=== PATIENT | female | born 1965 | race Caucasian/White ===

== ENCOUNTER → 2020-02-28 11:50 | Outpatient (CLI) | payer OTHER, SELFPAY ==
--- NOTE | ~2020-02-28 | CT_ITS ---
EXAMINATION: CT abdomen pelvis wo con DATE: 02/28/2020 12:09 INDICATION: Right flank pain TECHNIQUE: Computed tomography (CT) of the abdomen and pelvis was performed without intravenous contr ast. The dose-length product (DLP) was 454.13 mGy-cm. Automated exposure control and iterative recons truction technique were employed. COMPARISON: 08/22/2013 FINDINGS: The lung bases are clear. The heart size is normal. The liver, spleen, pancreas, gallbladde r, and adrenal glands are normal. There is a 6 mm stone in the proximal right ureter which causes mil d right hydroureteronephrosis. There are multiple bilateral nonobstructing stones in both kidneys. No pathologically enlarged abdominal or pelvic lymph nodes are identified. There is no free intraperito prince gas or evidence of bowel obstruction. The appendix is normal. 1. Mild lumbar IMPRESSION: 1. 6 mm stone in the proximal right ureter causing mild right hydroureteronephrosis. 2. Bilateral nonobstructing nephrolithiasis. Reviewed, dictated and finalized at location A. IMPRESSION: 1. 6 mm stone in the proximal right ureter causing mild right hydroureteronephr osis. 2. Bilateral nonobstructing nephrolithiasis.
== END ==
PROVIDERS: PCP Family Medicine; Visit Provider Physician Assistant
DX: R10.9 Unspecified abdominal pain (principal); N20.1 Calculus of ureter; N20.0 Calculus of kidney; N13.4 Hydroureter
CPT/HCPCS: 74176

== ENCOUNTER 2020-02-29 11:09 | Outpatient (CLI) | payer OTHER, SELFPAY ==
--- NOTE | ~2020-02-29 | XR_ITS ---
XR abdomen/kub 1V 02/29/2020 11:21 Indication: Right UPJ stone Procedure: KUB Comparison: CT dated 02/28/2020 Findings: There are multiple bilateral renal stones. There is a 7 mm stone at the expected location o f the UPJ at the lower aspect of the L3 level. Bowel pattern is nonobstructive. Lung bases unremarkab le. No acute osseous abnormality. Impression: 1: Probable 7 mm right J stent. 2: Bilateral nephrolithiasis. Reviewed, dictated and finalized at location B. Impression: 1: Probable 7 mm right J stent. 2: Bilateral nephrolithiasis.
== END 2020-02-29 11:10 | disposition home or self-care (01) ==
LOC: ANHIMG 11:13
PROVIDERS: PCP Family Medicine; Visit Provider Nurse Practitioner Adult Health
DX: N13.5 Crossing vessel and stricture of ureter without hydronephrosis (principal); N20.0 Calculus of kidney
CPT/HCPCS: 74018

== ENCOUNTER 2020-03-01 13:07 | Outpatient (CLI) | payer OTHER, SELFPAY ==
--- NOTE | 2020-03-01 13:09 | ECG_ITS ---
Measurements Intervals [place] Rate: 62 P: 48 HI: 162 QRS: 71 QRSD: 85 T: 9 QT: 366 QTc: 372 Interpretive Statements SINUS RHYTHM DELAYED PRECORDIAL R/S TRANSITION LOW QRS VOLTAGE IN PRECORDIAL LEADS BORDERLINE ECG Electronically Signed On 03-01-2020 13:43:49 CDT by Erich Huertas D.O.
[2020-03-01 13:59] LABS: Partial Thromboplastin Time 24.1 SECONDS (22.3-36.8); Prothrombin Time 13.2 Seconds (11.1-14.7)
== END 2020-03-01 13:08 | disposition home or self-care (01) ==
PROVIDERS: PCP Family Medicine; Visit Provider Urology
DX: I10 Essential (primary) hypertension (principal); N20.0 Calculus of kidney; R94.31 Abnormal electrocardiogram [ECG] [EKG]
CPT/HCPCS: 36415; 85610; 85730; 93005

== ENCOUNTER 2020-03-02 00:33 | Outpatient (CLI) | payer OTHER, SELFPAY ==
[2020-03-02 19:12] LABS: SARS-CoV-2 RNA PCR Negative
== END 2020-03-02 00:34 | disposition home or self-care (01) ==
LOC: ANHCOVIDDT 00:33
PROVIDERS: PCP Family Medicine; Visit Provider Urology
DX: Z01.812 Encounter for preprocedural laboratory examination (principal); Z11.59 Encounter for screening for other viral diseases
CPT/HCPCS: 87635; C9803; U0003

== ENCOUNTER 2020-03-03 03:15 | Day surgery (SDC) | payer OTHER, SELFPAY ==
[2020-03-01 11:53] VITALS: BMI 30.5
[2020-03-03] VITALS (8 sets, daily range): BP systolic 128–174; BP diastolic 68–94; PULSE 67–86; RESP 10–17; TEMP 36.3–36.4; O2SAT 100
--- NOTE | ~2020-03-03 | XR_ITS ---
XR abdomen/kub 1V 03/03/2020 08:21 Indication: Lithotripsy Procedure: KUB Comparison: CT dated 02/28/2020 and KUB dated 02/29/2020 Findings: There are multiple bilateral renal stones, largest in the left kidney measuring approximate ly 6.5 mm. There is a proximal right ureteral stone at the L4 level overlying the transverse process, measuring approximately 6.5 mm. There are pelvic phleboliths. Bowel gas pattern is nonobstructive. M oderate colonic fecal loading. Impression: 1: Proximal right ureteral stone at the L4 level measuring approximately 6.5 mm. 2: Bilateral nephrolithiasis. Reviewed, dictated and finalized at location B. Impression: 1: Proximal right ureteral stone at the L4 level measuring approximately 6.5 mm . 2: Bilateral nephrolithiasis.
[2020-03-03] MEDS: LACTATED RINGERS 1,000 ML 30 ML IV CONT ×2 (09:20→10:39)
--- NOTE | 2020-03-03 09:23 | WPDANESEPPF ---
Anes - Initial Pre Proc Eval Procedure: Operation Date: 03/03/20 10:30 Proposed Procedures p Right Extracorporeal Shock Wave Lithotripsy - Evgeny Shah MD Date/Time: 03/03/20 09:23 Surgeon: Evgeny Shah MD Pre Op Diagnosis: Right UPJ Obstruction Patient Data Age: 55 Gender: F Height: 5 ft 2 in Weight: 74.5 kg Last Vital Signs Temp 36.3 C L 03/03/20 08:29 Pulse 67 03/03/20 08:29 Resp 16 03/03/20 08:29 BP 131/77 03/03/20 08:29 Pulse Ox 100 03/03/20 08:29 Allergies Allergy/AdvReac Type Severity Reaction Status Date / Time No Known Allergies Allergy Verified 03/01/20 11:54 Home Medications Medication Instructions Recorded Confirmed Type atorvastatin 10 mg tablet 10 mg PO DAILY #90 tablet 09/14/19 03/01/20 Rx hydroxyzine HCl 25 mg tablet 25 mg PO ONCE PRN tablet 09/14/19 03/01/20 History paroxetine HCl 10 mg tablet 10 mg PO DAILY 09/14/19 03/01/20 History tamsulosin 0.4 mg capsule 0.4 mg PO DAILY #7 cap 02/24/20 03/01/20 Rx ergocalciferol (vitamin D2) 50,000 unit PO WEEKLY 03/01/20 03/01/20 History [Vitamin D2] estradiol-norethindrone acet 1 tablet PO DAILY 03/01/20 03/01/20 History [Mimvey] hydrocodone-acetaminophen 1 tablet PO DAILY 03/01/20 03/01/20 History lisinopril 10 mg tablet 10 mg PO BID #180 tablet 03/01/20 Rx Patient hx anesthesia problems: none Family hx anesthesia problems: none PMFSH Past Medical History Medical History Anxiety Hepatitis C antibody test negative Hyperlipidemia Hypertension Social History Social History Smoking status: Never smoker Alcohol intake: current Drinks per week: 2 Spiritual care concerns: No Anes - Eval Final PreProcedure Day of Procedure 03/03/20 09:23 Patient weight: obese Heart: regular rate and rhythm Lungs: clear to auscultation Airway: Mallampati scale class 1 Neurological: alert and oriented Last oral intake: >/= 8 hours ASA classification: III Emergent: no Anesthetic plan: proceed Anesthesia type and monitoring: general LMA and standard monitoring Informed Consent: The patient's anesthetic plan and its attendant risks and benefits were discussed with the patient/family/POA. Questions were solicited and answers provided to the satisfaction of the patient/family/POA.
--- NOTE | 2020-03-03 09:51 | WPDHPUPDATE1 ---
History and Physical Update Update Date/Time: 03/03/20 09:51 History and Physical has been reviewed, including an updated exam of the patient. There are NO changes in the patient's condition. Risks, benefits, and alternatives have been discussed and questions answered. Patient agrees to proceed with procedure.
[2020-03-03] MEDS: ceFAZolin 2 GM/D5W 50 ML 2 GM/50 ML BAG IVPB (10:03)
[2020-03-03] MEDS: KETOROLAC 30 MG/ML VIAL (*BKC) IV PUSH (10:31)
--- NOTE | 2020-03-03 10:38 | PM.PROC ---
Procedure Note - Detailed Date of procedure: 03/03/20 Pre-op diagnosis: Right UPJ Obstruction Right ureteral calculus 7-8 mm Post-op diagnosis: same Procedure performed: ESWL of right ureteral calculus Description of procedure: Patient was taken to the operative suite and correctly identified. Once anesthesia was obtained the stone was localized in both planes. After 1700 shocks the stone was no longer visible. At this point time the procedure was terminated. She was seen recovery stable condition and given the standard post litho instructions. She will follow up in 10-14 days with KUB. If she develops any problems she will call us so we can deal with appropriately. Anesthesia: GLMA Surgeon: Evgeny Shah MD Drains: No Packing: No Pathology: none sent Complications: No immediate complications Condition: stable Disposition: PACU
== END 2020-03-03 12:20 | disposition home or self-care (01) ==
PROVIDERS: PCP Family Medicine; Visit Provider Urology
PROC: (CPT 50590; principal; 2020-03-03 10:30)
DX: N20.1 Calculus of ureter (principal); I10 Essential (primary) hypertension; E78.5 Hyperlipidemia, unspecified; F41.9 Anxiety disorder, unspecified; E66.9 Obesity, unspecified; Z68.30 Body mass index [BMI] 30.0-30.9, adult
CPT/HCPCS: 50590; 74018; 87635; C9803; J0690; J1100; J1885; J2250; J2370; J2405; J2704; J3010; J7120; U0003

== ENCOUNTER 2020-03-16 08:27 | Outpatient (CLI) | payer OTHER, SELFPAY ==
--- NOTE | ~2020-03-16 | XR_ITS ---
EXAMINATION: XR abdomen/kub 1V INDICATION: Ureteropelvic junction obstruction TECHNIQUE: Supine views of the abdomen were obtained on 2 radiographs. COMPARISON: 03/03/2020 FINDINGS: There are multiple stones of the kidneys. The largest on the right measures up to 6 mm. The largest on the left measures 7 mm. The previously described proximal right ureteral stone is not def initely identified. Pelvic phleboliths have an appearance similar to the comparison examination. The bowel gas pattern is normal. Visualized lung bases are clear. IMPRESSION: 1. Previously described right ureteral stone not definitely identified. 2. Bilateral nephrolithiasis. Reviewed, dictated and finalized at location B.
== END 2020-03-16 08:28 | disposition home or self-care (01) ==
LOC: ANHIMG 08:32
PROVIDERS: PCP Family Medicine; Visit Provider Nurse Practitioner Adult Health
DX: N13.5 Crossing vessel and stricture of ureter without hydronephrosis (principal); N20.0 Calculus of kidney
CPT/HCPCS: 74018

== ENCOUNTER 2020-05-13 09:15 | Outpatient (CLI) | payer OTHER, SELFPAY ==
[2020-05-13 09:59] LABS: Prothrombin Time 13.1 Seconds (11.1-14.7)
[2020-05-13 10:00] LABS: Partial Thromboplastin Time 23.8 SECONDS (22.3-36.8)
== END 2020-05-13 09:16 | disposition home or self-care (01) ==
PROVIDERS: PCP Family Medicine; Visit Provider Urology
DX: N20.0 Calculus of kidney (principal); Z01.812 Encounter for preprocedural laboratory examination
CPT/HCPCS: 36415; 85610; 85730; 87086

== ENCOUNTER 2020-05-17 02:46 | Outpatient (CLI) | payer OTHER, SELFPAY ==
[2020-05-17 18:24] LABS: SARS-CoV-2 RNA PCR Negative
== END 2020-05-17 02:47 | disposition home or self-care (01) ==
LOC: ANHCOVIDDT 02:46
PROVIDERS: PCP Family Medicine; Visit Provider Urology
DX: Z01.812 Encounter for preprocedural laboratory examination (principal); Z20.828 Contact with and (suspected) exposure to other viral communicable diseases
CPT/HCPCS: 87635; C9803; U0003

== ENCOUNTER 2020-05-19 00:23 | Day surgery (SDC) | payer OTHER, SELFPAY ==
[2020-05-11 09:06] VITALS: BMI 30.5
--- NOTE | ~2020-05-19 | XR_ITS ---
EXAMINATION: XR abdomen/kub 1V EXAM DATE: 05/19/2020 07:30 INDICATION: Lithotripsy attention left kidney. TECHNIQUE: Frontal projection of the upper abdomen, frontal projection lower abdomen/pelvis for inter pretation. Comparison is made to prior examination from 03/16/2020. FINDINGS: There is large amount of bowel gas overlying the renal contours. There are multiple cluste rs of left calyceal stones identified through the bowel gas. There are clusters of smaller right-side d calyceal stones also identified. There is no organomegaly. There are no osseous abnormalities ident ified. IMPRESSION: Bilateral nephrolithiasis, larger stone burden on the left. Reviewed, dictated and finalized at location A.
--- NOTE | 2020-05-19 07:25 | WPDHPUPDATE1 ---
History and Physical Update Update Date/Time: 05/19/20 07:25 History and Physical has been reviewed, including an updated exam of the patient. There are NO changes in the patient's condition. Risks, benefits, and alternatives have been discussed and questions answered. Patient agrees to proceed with procedure. Proceed with left renal eswl
[2020-05-19 08:01] VITALS: BP 148/81; PULSE 68; RESP 16; TEMP 36.9; O2SAT 99
[2020-05-19] MEDS: LACTATED RINGERS 1,000 ML 30 ML IV CONT (08:01)
--- NOTE | 2020-05-19 08:55 | P.PNAN_ITS ---
Anes - Initial Pre Proc Eval Procedure: Operation Date: 05/19/20 09:30 Proposed Procedures p Left Renal Extracorporeal Shock Wave Lithotripsy - Evgeny Shah MD Date/Time: 05/19/20 08:55 Surgeon: Evgeny Shah MD Pre Op Diagnosis: Left Renal Stone Patient Data Age: 55 Gender: F Height: 5 ft 2 in Weight: 75.8 kg Last Vital Signs Temp 36.9 C 05/19/20 08:01 Pulse 68 05/19/20 08:01 Resp 16 05/19/20 08:01 BP 148/81 H 05/19/20 08:01 Pulse Ox 99 05/19/20 08:01 Allergies Allergy/AdvReac Type Severity Reaction Status Date / Time No Known Allergies Allergy Verified 05/19/20 07:35 Home Medications Medication Instructions Recorded Confirmed Type hydroxyzine HCl 25 mg tablet 25 mg PO DAILY PRN tablet 09/14/19 05/11/20 History paroxetine HCl 10 mg tablet 10 mg PO DAILY 09/14/19 05/19/20 History ergocalciferol (vitamin D2) 50,000 unit PO WEEKLY 03/01/20 05/19/20 History [Vitamin D2] estradiol-norethindrone acet 1 tablet PO DAILY 03/01/20 05/19/20 History [Mimvey] lisinopril 20 mg tablet 20 mg PO DAILY #90 tablet 04/07/20 05/19/20 Rx atorvastatin 10 mg PO DAILY 05/11/20 05/19/20 History Patient hx anesthesia problems: none Family hx anesthesia problems: none PMFSH Past Medical History Medical History Anxiety Hepatitis C antibody test negative Hyperlipidemia Hypertension Family History Family History Grandparent Diabetes mellitus Father Hypertension Mother Hypertension Family history of elevated blood lipids Social History Social History Smoking status: Never smoker Alcohol intake: current Drinks per week: 2 Spiritual care concerns: No Anes - Eval Final PreProcedure Day of Procedure 05/19/20 08:55 Patient weight: obese Heart: regular rate and rhythm Lungs: clear to auscultation Airway: Mallampati scale class 1 Neurological: alert and oriented Last oral intake: >/= 8 hours ASA classification: III Emergent: no Anesthetic plan: proceed Anesthesia type and monitoring: general LMA Informed Consent: The patient's anesthetic plan and its attendant risks and b enefits were discussed with the patient/family/POA. Questions were solicited and answers provided to the satisfaction of the patient/family/POA.
[2020-05-19] MEDS: ceFAZolin 2 GM/D5W 50 ML 2 GM/50 ML BAG IVPB (09:09)
--- NOTE | 2020-05-19 09:46 | PM.PROC ---
Procedure Note - Detailed Date of procedure: 05/19/20 Pre-op diagnosis: Left Renal Stone Post-op diagnosis: same Procedure performed: ESWL left renal calculi Description of procedure: Patient is taken to the operative suite and correctly identified. Once anesthesia was obtained she was placed in the supine position. She has multiple left renal stones. We started with the upper pole stones. Two thousand five hundred shocks were given over the course of 3-4 different stones. There appeared to be fragmentation. She was taken recovery room in stable condition. She will follow up 7-10 days with a KUB. Anesthesia: GLMA Surgeon: Evgeny Shah MD Drains: No Packing: No Pathology: none sent Complications: No immediate complications Condition: stable Disposition: PACU
[2020-05-19 09:55] VITALS: BP 127/81; PULSE 89; RESP 14; TEMP 36.1; O2SAT 100
[2020-05-19 10:10] VITALS: BP 141/86; PULSE 80; RESP 16; O2SAT 100
[2020-05-19 10:25] VITALS: BP 136/83; PULSE 74; RESP 14; O2SAT 100
[2020-05-19 10:27] VITALS: BP 143/90; PULSE 78; RESP 14
[2020-05-19 10:57] VITALS: BP 140/86; PULSE 76; RESP 14
== END 2020-05-19 11:15 | disposition home or self-care (01) ==
PROVIDERS: PCP Family Medicine; Visit Provider Urology
PROC: (CPT 50590; principal; 2020-05-19 09:30)
DX: N20.0 Calculus of kidney (principal); I10 Essential (primary) hypertension; E78.5 Hyperlipidemia, unspecified; F41.9 Anxiety disorder, unspecified; E66.9 Obesity, unspecified; Z68.30 Body mass index [BMI] 30.0-30.9, adult
CPT/HCPCS: 50590; 74018; J0690; J1100; J2250; J2405; J3010; J7120

== ENCOUNTER 2020-05-31 09:50 | Outpatient (CLI) | payer OTHER, SELFPAY ==
--- NOTE | ~2020-05-31 | XR_ITS ---
EXAMINATION: XR abdomen/kub 1V DATE: 05/31/2020 10:08 INDICATION: Obstructing right ureteropelvic junction stone. TECHNIQUE: A supine view of the abdomen on 2 radiographs was obtained. COMPARISON: 05/19/2020 FINDINGS: There are numerous small stones scattered throughout the upper, mid and lower, left and right kidneys , the largest on both sides measuring up to 4 mm. Unchanged pattern of phleboliths in the pelvis. No definitive stones seen along the course of the ureters. Normal bowel gas pattern. IMPRESSION: 1. Multiple bilateral renal stones. Reviewed, dictated and finalized at location B.
== END 2020-05-31 09:51 | disposition home or self-care (01) ==
LOC: ANHIMG 09:55
PROVIDERS: PCP Family Medicine; Visit Provider Nurse Practitioner Adult Health
DX: N13.5 Crossing vessel and stricture of ureter without hydronephrosis (principal); N20.0 Calculus of kidney
CPT/HCPCS: 74018

== ENCOUNTER 2020-06-09 13:29 | Outpatient (CLI) | payer OTHER, SELFPAY ==
[2020-06-09 14:09] LABS: Prothrombin Time 13.2 Seconds (11.1-14.7)
[2020-06-09 14:10] LABS: Partial Thromboplastin Time 24.1 SECONDS (22.3-36.8)
== END 2020-06-09 13:30 | disposition home or self-care (01) ==
PROVIDERS: PCP Family Medicine; Visit Provider Urology
DX: N20.0 Calculus of kidney (principal)
CPT/HCPCS: 36415; 85610; 85730; 87086

== ENCOUNTER 2020-06-14 01:34 | Outpatient (CLI) | payer OTHER, SELFPAY ==
[2020-06-14 18:17] LABS: SARS-CoV-2 RNA PCR Negative
== END 2020-06-14 01:35 | disposition home or self-care (01) ==
LOC: ANHCOVIDDT 01:35
PROVIDERS: PCP Family Medicine; Visit Provider Urology
DX: Z01.812 Encounter for preprocedural laboratory examination (principal); Z20.828 Contact with and (suspected) exposure to other viral communicable diseases
CPT/HCPCS: 87635; C9803; U0003

== ENCOUNTER 2020-06-16 01:35 | Day surgery (SDC) | payer OTHER, SELFPAY ==
[2020-06-06 10:29] VITALS: BMI 30.5
[2020-06-16] VITALS (8 sets, daily range): BP systolic 93–139; BP diastolic 69–86; PULSE 60–76; RESP 14–18; TEMP 36.1–36.6; O2SAT 96–100
--- NOTE | ~2020-06-16 | XR_ITS ---
EXAMINATION: XR abdomen/kub 1V DATE: 06/16/2020 07:35 INDICATION: Kidney stones. TECHNIQUE: A supine view of the abdomen on 2 radiographs was obtained. COMPARISON: CT abdomen and pelvis 02/28/2020 FINDINGS: There are multiple stones in right kidney measuring up to 5 mm. There are multiple stones i n left kidney measuring up to 6 mm. There are phleboliths in the pelvis. There are no dilated loops o f bowel. IMPRESSION: 1. Bilateral kidney stones. Reviewed, dictated and finalized at location A. IMPRESSION: 1. Bilateral kidney stones.
--- NOTE | 2020-06-16 07:33 | WPDHPUPDATE1 ---
History and Physical Update Update Date/Time: 06/16/20 07:33 History and Physical has been reviewed, including an updated exam of the patient. There are NO changes in the patient's condition. Risks, benefits, and alternatives have been discussed and questions answered. Patient agrees to proceed with procedure. Right renal eswl
--- NOTE | 2020-06-16 08:15 | WPDHPUPDATE1 ---
History and Physical Update Update Date/Time: 06/16/20 08:15 History and Physical has been reviewed, including an updated exam of the patient. There are NO changes in the patient's condition. Risks, benefits, and alternatives have been discussed and questions answered. Patient agrees to proceed with procedure. Proceed with right renal eswl. All systems reviewed and within normal range'
[2020-06-16] MEDS: LACTATED RINGERS 1,000 ML 30 ML IV CONT (08:20)
--- NOTE | 2020-06-16 08:32 | P.PNAN_ITS ---
Anes - Initial Pre Proc Eval Procedure: Operation Date: 06/16/20 09:30 Proposed Procedures p Right Renal Extracorporeal Shock Wave Lithotripsy - Evgeny Shha MD Date/Time: 06/16/20 08:32 Surgeon: Evgeny Shah MD Pre Op Diagnosis: Right Renal Stone Patient Data Age: 55 Gender: F Height: 1.57 m Weight: 75 kg Last Vital Signs Temp 36.6 C 06/16/20 07:47 Pulse 76 06/16/20 07:47 Resp 16 06/16/20 07:47 BP 120/80 06/16/20 07:47 Pulse Ox 100 06/16/20 07:47 Allergies Allergy/AdvReac Type Severity Reaction Status Date / Time No Known Allergies Allergy Verified 06/16/20 08:08 Home Medications Medication Instructions Recorded Confirmed Type hydroxyzine HCl 25 mg tablet 25 mg PO DAILY PRN tablet 09/14/19 06/06/20 History paroxetine HCl 10 mg tablet 10 mg PO DAILY 09/14/19 06/16/20 History ergocalciferol (vitamin D2) 50,000 unit PO WEEKLY 03/01/20 06/16/20 History [Vitamin D2] estradiol-norethindrone acet 1 tablet PO DAILY 03/01/20 06/16/20 History [Mimvey] lisinopril 20 mg tablet 20 mg PO DAILY #90 tablet 04/07/20 06/16/20 Rx atorvastatin 10 mg PO DAILY 05/11/20 06/16/20 History Patient hx anesthesia problems: none Family hx anesthesia problems: none [facility] Past Medical History Medical History Anxiety Hepatitis C antibody test negative Hyperlipidemia Hypertension Family History Family History Grandparent Diabetes mellitus Father Hypertension Mother Hypertension Family history of elevated blood lipids Social History Social History Smoking status: Never smoker Alcohol intake: current Drinks per week: 2 Spiritual care concerns: No Anes - Eval Final PreProcedure Day of Procedure 06/16/20 08:32 Patient weight: obese Heart: regular rate and rhythm Lungs: clear to auscultation and normal air movement Airway: Mallampati scale class 1 Neurological: alert and oriented Last oral intake: >/= 8 hours ASA classification: III Emergent: no Anesthetic plan: proceed Anesthesia type and monitoring: general LMA and standard monitoring Informed Consent: The patient's anesthetic plan and its attendant risks and benefits were discussed with the patient/family/POA. Questions were solicited and answers provided to the satisfaction of the patient/family/POA.
[2020-06-16] MEDS: ceFAZolin 2 GM/D5W 50 ML 2 GM/50 ML BAG IVPB (09:10)
--- NOTE | 2020-06-16 09:52 | P.OP_ITS ---
Procedure Note - Detailed Date of procedure: 06/16/20 Pre-op diagnosis: Right Renal Stone Post-op diagnosis: same Procedure performed: ESWL of right renal calculi Description of procedure: patient is taken the operative suite and correctly id entified. Once anesthesia was obtained the stones in the right kidneys were located. We focused on 2 of the larger stones. One was in the midpole him was in the upper pole. Each stone measured between 4-5 mm. A total of 2500 shocks were distributed amongst the 2 stones. Patient tolerated procedure well without any complications is taken recovery room stable condition. Anesthesia: GLMA Surgeon: Evgeny Shah MD Drains: No Packing: No Pathology: none sent Complications: No immediate complications Condition: stable Disposition: PACU
== END 2020-06-16 11:45 | disposition home or self-care (01) ==
PROVIDERS: PCP Family Medicine; Visit Provider Urology
PROC: (CPT 50590; principal; 2020-06-16 09:30)
DX: N20.0 Calculus of kidney (principal); I10 Essential (primary) hypertension; E78.5 Hyperlipidemia, unspecified; F41.9 Anxiety disorder, unspecified; E66.9 Obesity, unspecified; Z68.30 Body mass index [BMI] 30.0-30.9, adult
CPT/HCPCS: 50590; 74018; J0690; J1100; J2250; J2405; J2704; J3010; J7120

== ENCOUNTER → 2020-08-09 10:06 | Outpatient (CLI) | payer OTHER, SELFPAY ==
--- NOTE | ~2020-08-09 | DEXA_ITS ---
Bone Density Report Name: Rima Costa Age: 55 Sex: Female Ethnicity: White Date of : 1965 Indication: postmenopausal; screening for osteoporosis; Referring Provider: ALLA, ONESIMO Study: Bone densitometry was performed. Exam Date: August 09, 2020 Accession number: [id number] Bone Density: Region BMD T-score Z-score Classification AP Spine (L1-L4) 1.120 0.7 1.8 Normal Femoral Neck (Left) 0.891 0.4 1.5 Normal Total Hip (Left) 1.040 0.8 1.5 Normal Femoral Neck (Right) 0.883 0.3 1.4 Normal Total Hip (Right) 1.023 0.7 1.4 Normal Total Hip Mean 1.032 0.8 1.5 Normal World Health Organization criteria for BMD impression classify patients as: Normal (T-score at or above -1.0), Osteopenia (T-score between -1.0 and -2.5), or Osteoporosis (T-score at or below -2.5). 10-year Fracture Risk: FRAX not reported because: All T-scores for Spine Total, Hip Total, Femoral Neck at or above -1.0 Treated for osteoporosis Clinical Information Provided by Patient: Is being treated for osteoporosis Has used the following medications: HRT (i.e. estrogen/hormone therapy), Vitamin D Patient maximum height was 63.2 Menopause Age: 54 Drinks caffeinated beverages Onset of menses at age 13 Number of children 2 Impression: The patient has normal bone mass. Discussion: It is important to ask patients whether they are taking their medications and to encourage continued and appropriate compliance with their osteoporosis therapies to reduce fracture risk. It is also important to review their risk factors and encourage appropriate calcium and vitamin D intakes, exercise, fall prevention and other lifestyle measures. Follow-Up: Consider a repeat BMD and Vertebral Fracture Assessment (VFA) exam in 2 years or sooner if medically necessary, to reassess this patient's status. Reported by: AMY on 08/09/2020 10:25:00 AM. Reviewed, dictated and finalized at location [facility]
--- NOTE | ~2020-08-09 | MM_ITS ---
EXAMINATION: MM screening james BI w carolann HISTORY: Screening mammogram TECHNIQUE: Craniocaudal and mediolateral oblique 3-D tomosynthesis images were obtained and synthetic 2-D images were generated. CAD analysis was submitted and interpreted. COMPARISON: 07/24/2019, 05/30/2018, 04/19/2017 bilateral digital screening mammogram examinations BREAST PARENCHYMAL COMPOSITION: There are scattered areas of fibroglandular density. FINDINGS: There is no evidence of suspicious mass, calcification, or architectural distortion to sugg est malignancy in either breast. There has been no suspicious interval change. IMPRESSION: 1. No mammographic evidence of malignancy. 2. Recommend routine screening mammography in one year. BI-RADS Category 1: Negative Reviewed, dictated and finalized at location A. [employer] SYSTEM[employer]ER
== END ==
PROVIDERS: PCP Family Medicine; Visit Provider Nurse Practitioner
DX: Z12.31 Encounter for screening mammogram for malignant neoplasm of breast (principal); Z78.0 Asymptomatic menopausal state
CPT/HCPCS: 77063; 77067; 77080

== ENCOUNTER 2020-11-26 10:22 | Outpatient (CLI) | payer OTHER, SELFPAY ==
--- NOTE | ~2020-11-26 | XR_ITS ---
EXAMINATION: XR abdomen/kub 1V INDICATION: Calculus of the kidney TECHNIQUE: Supine view of the abdomen is obtained. COMPARISON: 06/16/2020, 05/31/2020 FINDINGS: There are multiple stones scattered throughout the left kidney. The largest measures 4 mm i n the lower pole. Bowel contents obscure visualization of the right kidney. There are multiple phlebo liths in the pelvis. No stones are identified along the expected courses of the ureters. The bowel ga s pattern is normal. IMPRESSION: 1. Left nephrolithiasis. Reviewed, dictated and finalized at location A. IMPRESSION: 1. Left nephrolithiasis.
== END 2020-11-26 10:23 | disposition home or self-care (01) ==
PROVIDERS: PCP Family Medicine; Visit Provider Internal Medicine Nephrology
DX: N20.0 Calculus of kidney (principal)
CPT/HCPCS: 74018

== ENCOUNTER 2021-11-30 09:41 | Outpatient (CLI) | payer OTHER, SELFPAY ==
--- NOTE | ~2021-11-30 | XR_ITS ---
EXAMINATION: XR abdomen/kub 1V EXAM DATE: 11/30/2021 10:00 INDICATION: Calculus of kidney. TECHNIQUE: Frontal projection of the upper abdomen, frontal projection lower abdomen/pelvis for inter pretation. Comparison is made to prior examination from 11/26/2020. FINDINGS: There is expected amount of colonic stool and gas. No small bowel dilation, nonobstructiv e bowel gas pattern. Probable identification of clusters of bilateral renal calyceal stones, larger on the left, indicated. Left side had similar appearance on prior study, possible right nephrolithias is not well visualized on that exam. Calcifications in the pelvis are believed to be phleboliths. There is no organomegaly suspected. T he bones are unremarkable. Lung bases unremarkable. IMPRESSION: Probable bilateral nephrolithiasis. Reviewed, dictated and finalized at location B.
== END 2021-11-30 09:42 | disposition home or self-care (01) ==
PROVIDERS: PCP Family Medicine; Visit Provider Internal Medicine Nephrology
DX: N20.0 Calculus of kidney (principal)
CPT/HCPCS: 74018

== ENCOUNTER → 2021-12-22 09:42 | Outpatient (CLI) | payer OTHER, SELFPAY ==
--- NOTE | ~2021-12-22 | MM_ITS ---
EXAMINATION: MM screening james BI w carolann HISTORY: Screening TECHNIQUE: Craniocaudal and mediolateral oblique 3-D tomosynthesis images were obtained and synthetic 2-D images were generated. CAD analysis was submitted and interpreted. COMPARISON: Comparison to multiple prior studies sequentially, with oldest reviewed study dated 03/08. BREAST PARENCHYMAL COMPOSITION: There are scattered areas of fibroglandular density. FINDINGS: There is no evidence of suspicious mass, calcification, or architectural distortion to sugg est malignancy in either breast. There has been no suspicious interval change. IMPRESSION: 1. No mammographic evidence of malignancy. 2. Recommend routine screening mammography in one year. BI-RADS Category 1: Negative Reviewed, dictated and finalized at location A.
== END ==
PROVIDERS: PCP Family Medicine; Visit Provider Nurse Practitioner
DX: Z12.31 Encounter for screening mammogram for malignant neoplasm of breast (principal)
CPT/HCPCS: 77063; 77067

== ENCOUNTER 2022-11-18 15:51 | Outpatient (CLI) | payer OTHER, SELFPAY ==
--- NOTE | ~2022-11-18 | XR_ITS ---
EXAMINATION: XR abdomen/kub 1V DATE: 11/18/2022 16:19 INDICATION: Kidney stone. TECHNIQUE: A supine view of the abdomen on 2 radiographs was obtained. COMPARISON: CT abdomen and pelvis 02/28/2020, abdomen radiographs 11/30/2021 FINDINGS: There are phleboliths in the pelvis. There are no dilated loops of bowel. The kidneys are o bscured by bowel. There are several stones in each kidney measuring up to at least 4 mm on the left. IMPRESSION: 1. Bilateral kidney stones. Reviewed, dictated and finalized at location A. IMPRESSION: 1. Bilateral kidney stones.
== END 2022-11-18 15:52 | disposition home or self-care (01) ==
LOC: ANHIMG 15:53
PROVIDERS: PCP Family Medicine; Visit Provider Internal Medicine Nephrology
DX: N20.0 Calculus of kidney (principal); I10 Essential (primary) hypertension
CPT/HCPCS: 74018

== ENCOUNTER → 2023-01-03 16:41 | Outpatient (CLI) | payer OTHER, SELFPAY ==
--- NOTE | ~2023-01-03 | MM_ITS ---
EXAMINATION: MM screening [facility] BI w carolann HISTORY: Screening mammogram TECHNIQUE: Craniocaudal and mediolateral oblique 3-D tomosynthesis images were obtained and synthetic 2-D images were generated. CAD analysis was submitted and interpreted. COMPARISON: 12/22/2021, 08/09/2020, 07/24/2019 BREAST PARENCHYMAL COMPOSITION: There are scattered areas of fibroglandular density. FINDINGS: No suspicious mass, calcification, or architectural distortion are identified in either alis ast to suggest malignancy. There has been no suspicious interval change. IMPRESSION: 1. No mammographic evidence of malignancy. 2. Recommend routine screening mammography in one year. BI-RADS Category 1: Negative Reviewed, dictated and finalized at location A.
== END ==
PROVIDERS: PCP Family Medicine; Visit Provider Nurse Practitioner
DX: Z12.31 Encounter for screening mammogram for malignant neoplasm of breast (principal)
CPT/HCPCS: 77063; 77067

== ENCOUNTER 2023-12-12 11:22 | Outpatient (CLI) | payer OTHER, SELFPAY ==
--- NOTE | ~2023-12-12 | XR_ITS ---
Supine and upright views of the abdomen Clinical history: Renal stone COMPARISON: 11/18/2022 Findings: Bowel gas pattern is nonspecific. No evidence for obstruction or free air. Small bilateral renal stones are probably similar to prior exam. Osseous structures are intact. Impression: Small bilateral renal stones, probably similar to prior exam. Reviewed, dictated and finalized at [facility]. Impression: Small bilateral renal stones, probably similar to prior exam.
== END 2023-12-12 11:23 | disposition home or self-care (01) ==
LOC: ANHIMG 11:24
PROVIDERS: PCP Family Medicine; Visit Provider Internal Medicine Nephrology
DX: N20.0 Calculus of kidney (principal)
CPT/HCPCS: 74018

== ENCOUNTER 2024-01-10 08:41 | Outpatient (CLI) | payer OTHER, SELFPAY ==
--- NOTE | ~2024-01-10 | MM_ITS ---
EXAMINATION: MM screening [facility] w carolann HISTORY: Screening mammogram TECHNIQUE: Craniocaudal and mediolateral oblique 3-D tomosynthesis images were obtained and synthetic 2-D images were generated. CAD analysis was submitted and interpreted. COMPARISON: 01/03/2023, 12/22/2021, 08/09/2020 BREAST PARENCHYMAL COMPOSITION:Not Dense. There are scattered areas of fibroglandular density. FINDINGS: No suspicious mass, calcification, or architectural distortion are identified in either alis ast to suggest malignancy. There has been no suspicious interval change. IMPRESSION: No mammographic evidence of malignancy. Recommend routine screening mammography in one year. BI-RADS Category 1: Negative Reviewed, dictated and finalized at location .
== END 2024-01-10 08:42 ==
LOC: MICIMG 08:42
PROVIDERS: PCP Family Medicine; Visit Provider Nurse Practitioner
DX: Z12.31 Encounter for screening mammogram for malignant neoplasm of breast (principal)
CPT/HCPCS: 77063; 77067

== ENCOUNTER 2025-01-11 08:57 | Outpatient (CLI) | payer OTHER, SELFPAY ==
--- NOTE | ~2025-01-11 | XR_ITS ---
XR abdomen/kub 1V 01/11/2025 09:10 Indication: Renal stones Procedure: KUB Comparison: 12/12/2023 Findings: Bowel gas pattern nonobstructive. There are multiple left renal stones. There is a new calc ification in the left midabdomen overlying the L5 transverse process, which may represent a phlebolit h or ureteral stone. Recommend correlation with CT. There are multiple pelvic phleboliths unchanged. Impression: 1: Multiple left renal stones. Possible left ureteral stone at the L5 level. Consider correlation wit h CT. Reviewed, dictated and finalized at location A. Impression: 1: Multiple left renal stones. Possible left ureteral stone at the L5 level. Co nsider correlation with CT.
--- OUTSIDE RECORDS SUMMARY | 2025-01-11 09:03 | XMS_ITS | Clinical Summary ---
Author Organization [facility] Address [address] [place] [address] Phone Care Team Providers Care Drawer In Hand Name Role Phone Gwen Cruz MD Primary Care Provider [phone] Allergies No known active allergies Medications atorvastatin (LIPITOR) 10 MG tablet 03/06/2020 Active ergocalciferol (VITAMIN D2) 1.25 MG (51125 UT) capsule 03/04/2020 Active estradiol-noreth indrone (ACTIVELLA) 1-0.5 MG per tablet 04/30/2020 Active PARoxetine (PAXIL) 10 MG tablet 03/20/2020 Active hydrOXYzine (ATARAX) 25 MG tablet 10/27/2020 Active losartan (COZAAR) 100 MG tablet 12/03/2021 Active POTASSIUM CITRATE PO Take 275 mg by mouth 2 bid Active Active Problems Problem Noted Date Diagnosed Date Essential hypertension 05/22/2020 Calculus of kidney 05/22/2020 Immunizations Immunization Administration Dates Next Due Influenza TIV (IM) 05/10/2022,06/01/2021, 020 Family History Medical History Relation Comments Hypertension Father Relation Status Comments Father Social History Tobacco Use Types Packs/Day Years Used Date Smoking Tobacco: Never Smokeless Tobacco: Never Alcohol Use Standard Drinks/Week Comments Yes 0 (1 standard drink = 0.6 oz pur e alcohol) occasional AUDIT-C Answer Date Recorded Q1: How often do you have a drink containing alc ohol? Never 05/22/2020 Average Number of Drinks Not on file 020 Frequency of Binge Drinking Not on file 12/2019 Comments Unknown Sex and Gender Information Value Date Recorded Sex Assigned at Not on file Legal Sex Female 9:39 AM MDT Gender Identity Not on file Sexual Orientation Not on file Last Filed Vital Signs Vital Sign Reading Time Taken Comments Blood Pressure 122/74 06/05/2022 3:45 PM CDT Pulse 72 06/05/2022 3:45 PM CDT Temperature 36.4 C (97.5 F) 06/05/2022 3:45 PM CDT Respiratory Rate - - Oxygen Saturation - - Inhaled Oxygen Concentration - - Weight 84.4 kg (186 lb) 06/05/2022 3:45 PM CDT Height 157.5 cm (5' 2) 06/05/2022 3:45 PM CDT Body Mass Index 34.02 06/05/2022 3:45 PM CDT Plan of Treatment Health Maintenance Due Date Last Done Comments Pneumococcal PPSV23 Highest Risk Adult (1 of 3 - PCV13) 02/15/1984 Influenza Vaccine (Season Ended) 2025 05/10/2022, 06/01/2021, 04/23/2020 [place] [id number] Care Teams Drawer In Hand Relationship Specialty Start Date End Date Gwen Cruz MD PCP - General Family Medicine 03/20/20
== END 2025-01-11 08:58 | disposition home or self-care (01) ==
LOC: ANHIMG 08:58
PROVIDERS: PCP Family Medicine; Visit Provider Internal Medicine Nephrology
DX: N20.0 Calculus of kidney (principal)
CPT/HCPCS: 74018

== ENCOUNTER 2025-02-21 15:18 | Outpatient (CLI) | payer OTHER, SELFPAY ==
--- NOTE | ~2025-02-21 | CT_ITS ---
Non-contrast CT scan of the Abdomen and Pelvis Clinical indication: Renal stone Technique: 2.5 mm axial scans were obtained through the abdomen and pelvis without intravenous or or al contrast. Dose reduction technique was used on this scan by utilizing automated exposure control a nd iterative reconstruction technique. The dose-length product (DLP) was 542.29 mGy-cm. Findings: Images through the lung bases reveal no abnormalities. There are multiple small bilateral nonobstructing renal stones, as well as bilateral medullary nephro calcinosis. No hydronephrosis. No ureteral stone identified. The liver, spleen, pancreas, gallbladder, and adrenals appear normal. There is no aortic aneurysm. There is no evidence of bowel obstruction. Images through the pelvis were performed. Urinary bladder unremarkable. No pelvic mass seen. Trace pe lvic free fluid noted. Impression: Bilateral nonobstructing renal stones with bilateral medullary nephrocalcinosis. Reviewed, dictated and finalized at [facility]. Impression: Bilateral nonobstructing renal stones with bilateral medullary nephrocalcinosis .
== END 2025-02-21 15:19 | disposition home or self-care (01) ==
PROVIDERS: PCP Internal Medicine Nephrology; Visit Provider Internal Medicine Nephrology
DX: N20.0 Calculus of kidney (principal)
CPT/HCPCS: 74176

== ENCOUNTER 2025-02-25 00:45 | Day surgery (SDC) | payer OTHER, SELFPAY ==
[2025-02-07 14:33] VITALS: BMI 31.1
--- OUTSIDE RECORDS SUMMARY | 2025-02-25 00:47 | XMS_ITS | Clinical Summary ---
Author Organization [facility] Address [address] [place] [id number] Phone Care Team Providers Care Putaway Driver Name Role Phone Gwen Cruz MD Primary Care Provider [phone] Allergies No known active allergies Medications atorvastatin (LIPITOR) 10 MG tablet 03/06/2020 Active ergocalciferol (VITAMIN D2) 1.25 MG (79189 UT) capsule 03/04/2020 Active estradiol-noreth indrone (ACTIVELLA) 1-0.5 MG per tablet 04/30/2020 Active PARoxetine (PAXIL) 10 MG tablet 03/20/2020 Active hydrOXYzine (ATARAX) 25 MG tablet 10/27/2020 Active losartan (COZAAR) 100 MG tablet 12/03/2021 Active POTASSIUM CITRATE PO Take 275 mg by mouth 2 bid Active Active Problems Problem Noted Date Diagnosed Date Essential hypertension 05/22/2020 Calculus of kidney 05/22/2020 Encounters Date Type Department Care Team Description 01/10/2025 Orders Only [facility] Nephrology and Hypertension [address], [address] [place] [address] Cali Alvarez MD from Last 3 Months Immunizations Immunization Administration Dates Next Due Influenza [...] of 3 - PCV13) 02/15/1984 Influenza Vaccine (#1) 2025 2, 06/01/2021, 04/23/2020 Procedures Procedure Name Priority Date/Time Associated Diagnosis Comments LITHOLINK 24-HOUR URINE, [place] Routine 01/10/2025 7:00 AM CDT from Last 3 Months Results * (ABNORMAL) Litholink 24-Hour Urine Panel (01/10/2025 7:00 AM CDT) CYSTINE, URINE, QUALITATIVE CANCELED [facility] 1 Comment: Test not performed. Previous test results on file. Result canceled by the ancillary. Volume, 24-Hour Urine 1,120 500 - 4,000 mL/24 hr [facility] 1 Calcium oxalate index, 24 hour Urine 1.22(L) 6.00 - 10.00 [facility] 1 Calcium, 24 hour Urine 59 <200 mg/24 hr [facility] 1 Oxalate, 24 hour Urine 10(L) 20 - 40 mg/24 hr [facility] 1 Citrate, 24 hour Urine 197(L) >550 mg/24 hr [facility] 1 CALCIUM PHOSPHATE SATURATION 0.63 0.50 - 2.00 [facility] 1 pH of 24 hour Urine 6.039 5.800 - 6.200 [facility] 1 Urate, 24 hour Urine 0.76 <1.00 [facility] 1 Uric Acid (Urate), 24 Hour Urine 463 <750 mg/24 hr [facility] 1 Sodium, 24 hour Urine 143 50 - 150 mmol/24 hr [facility] 1 Potassium, 24 hour Urine 44 20 - 100 mmol/24 hr [facility] 1 Magnesium, 24 hour Urine 79 30 - 120 mg/24 hr [facility] 1 Phosphate, 24 hour Urine 913 600 - 1,200 mg/24 hr [facility] 1 AMMONIUM, URINE 19 15 - 60 mmol/24 hr [facility] 1 Chloride, 24 hour Urine 121 70 - 250 mmol/24 hr [facility] 1 Sulfate, 24 hour Urine 35 20 - 80 meq/24 hr [facility] 1 Urea nitrogen, 24 hour Urine (UUN) 7.48 6.00 - 14.00 g/24 hr [facility] 1 PROTEIN CATABOLIC RATE 0.8 0.8 - 1.4 g/kg/24 hr [facility] 1 Creatinine, 24 hour Urine 1,539 Not Applic. mg/24 hr [facility] 1 CREATININE / KG BODY WEIGHT 19.2 8.7 - 20.3 mg/24 hr/kg [facility] 1 Calcium/Kg Body Weight 0.7 <4.0 mg/24 hr/kg [facility] 1 RATIO CALCIUM TO CREATININE UA 38(L) 51 - 262 mg/g creat [facility] 1 COMMENT Note [facility] 1 PDF . [facility] 1 01/10/2025 7:00 AM CDT 01/18/2025 11:00 PM CDT Narrative [facility] - 01/20/2025 2:35 AM CDT Performed at: - [facility] [place] [id number] Guyline Operator: Dylan Salmon PhD, Phone: [phone] us Cali Alvarez MD LAB URINE ORDERABLES Edited Res ult - Final [facility] 1 from Last 3 Months Insurance [facility] Member Subscriber Plan / Payer (Ef fective 2019-Present) Name:Rima Erickson Member ID:xxxxxxxxx xxxxxx PLUS Relation to Subscriber:Self Name:Rima Erickson Subscriber ID:xxxxxxxxx xxxxxx PLUS Payer ID:[id number] (NAIC) Type:Not on file Address: [facility] [id number] [place] [id number] Care Teams Putaway Driver Relationship Specialty Start Date End Date Gwen Cruz MD PCP - General Family Medicine 03/20/20
[2025-02-25 08:22] VITALS: BP 128/80; PULSE 66; RESP 18; TEMP 36.3; O2SAT 95
[2025-02-25] MEDS: LACTATED RINGERS 1,000 ML 150 ML IV CONT (08:28)
--- NOTE | 2025-02-25 09:00 | P.PNAN_ITS ---
Anes - Initial Pre Proc Eval Procedure: Operation Date: 02/25/25 09:30 Proposed Procedures p Screening Colonoscopy - Aman Monteiro MD Date/Time: 02/25/25 09:00 Surgeon: Aman Monteiro MD Pre Op Diagnosis: Encounter for screening for malignant neoplasm of Patient Data Age: 60 Gender: F Height: 1.57 m Weight: 77.3 kg Last Vital Signs Temp 36.3 C L 02/25/25 08:22 Pulse 66 02/25/25 08:22 Resp 18 02/25/25 08:22 BP 128/80 02/25/25 08:22 Pulse Ox 95 02/25/25 08:22 O2 Del Method Room Air 02/25/25 08:22 Allergies Allergy/AdvReac Type Severity Reaction Status Date / Time No Known Allergies Allergy Verified 02/25/25 08:18 Home Medications ?Medication ?Instructions ?Recorded ?Confirmed ?Type paroxetine HCl 10 mg tablet 10 mg PO DAILY 09/14/19 02/25/25 History ergocalciferol (vitamin D2) 1,250 50,000 unit PO WEEKLY 03/01/20 02/25/25 History mcg (50,000 unit) capsule (Vitamin D2) estradiol-norethindrone acet 1 1 tablet PO DAILY 03/01/20 02/25/25 History mg-0.5 mg tablet (Mimvey) hydrochlorothiazide 25 mg tablet 25 mg PO DAILY #90 tabs 03/02/24 02/25/25 Rx atorvastatin 10 mg tablet See Rx Instructions .Route 08/30/24 02/25/25 Rx .COMPLEX #90 tabs losartan 100 mg tablet See Rx Instructions .Route 08/30/24 02/25/25 Rx .COMPLEX #90 tabs trazodone 50 mg tablet 50 mg PO QHS PRN anxiety 10/19/24 02/07/25 History potassium citrate 10 mEq (1,080 See Rx Instructions .Route 12/24/24 02/25/25 Rx mg) tablet,extended release .COMPLEX #200 tabs tirzepatide (weight loss) 2.5 2.5 mg subcut WEEKLY 02/02/25 02/25/25 History mg/0.5 mL subcutaneous solution Patient hx anesthesia problems: none Family hx anesthesia problems: none Results Review: All pre-operative results and documents have been reviewed as part of the pre- operative evaluation. [facility] Past Medical History Medical History Anxiety Hypertension Hyperlipidemia Hepatitis C antibody test negative Family History Family History Grandparent Diabetes mellitus Father Hypertension Mother Hypertension Family history of elevated blood lipids Social History Social History Social History: Caffeine-coffee/tea daily Smoking status: Never smoker Alcohol intake: never Drinks per week: 2 Substance use: never Substance use type: does not use Do You Feel Safe in your Home?: Yes Lack of Transportation: No Lack of Food: Never True Current Housing: I Have Housing Concerned About Future Housing: No Difficulty Paying Gas/Electric Bills: No Difficulty Paying for Meds: No Currently Unemployed: No Education: Bachelor's Degree Difficulty w/ Childcare or Family Care: No Living arrangements: with family Gender identity (if verbalized by the patient): Female Spiritual care concerns: No Anes - Eval Final PreProcedure Day of Procedure 02/25/25 09:00 Patient weight: obese Heart: regular rate and rhythm Lungs: clear to auscultation Airway: Mallampati scale class II Neurological: alert and oriented Last oral intake: >/= 8 hours ASA classification: III Emergent: no Anesthetic plan: proceed Anesthesia type and monitoring: general GIVS and standard monitoring Results Review: All pre-operative results and documents have been reviewed as part of the pre- operative evaluation. Informed Consent: The patient's anesthetic plan and its attendant risks and benefits were discussed with the patient/family/POA. Questions were solicited and answers provided to the satisfaction of the patient/family/POA.
--- NOTE | 2025-02-25 09:00 | PM.IMHP ---
H&P: HPI History of Present Illness Date/Time: 02/25/25 09:00 Chief Complaint: Screening colonoscopy Narrative: This is the patient's second colonoscopy. There are no GI symptoms and there is no family history of colorectal cancer. Review of Systems Review of Systems: All systems reviewed & are unremarkable except as noted in HPI and below PMFSH Past Medical History Medical History Anxiety Hypertension Hyperlipidemia Hepatitis C antibody test negative Family History Family History Grandparent Diabetes mellitus Father Hypertension Mother Hypertension Family history of elevated blood lipids Social History Social History Social History: Caffeine-coffee/tea daily Smoking status: Never smoker Alcohol intake: never Drinks per week: 2 Substance use: never Substance use type: does not use Do You Feel Safe in your Home?: Yes Lack of Transportation: No Lack of Food: Never True Current Housing: I Have Housing Concerned About Future Housing: No Difficulty Paying Gas/Electric Bills: No Difficulty Paying for Meds: No Currently Unemployed: No Education: Bachelor's Degree Difficulty w/ Childcare or Family Care: No Living arrangements: with family Gender identity (if verbalized by the patient): Female Spiritual care concerns: No Meds Home Medications and Allergies Home Medications ?Medication ?Instructions ?Recorded ?Confirmed ?Type paroxetine HCl 10 mg tablet 10 mg PO DAILY 09/14/19 02/25/25 History ergocalciferol (vitamin D2) 1,250 50,000 unit PO WEEKLY 03/01/20 02/25/25 History mcg (50,000 unit) capsule (Vitamin D2) estradiol-norethindrone acet 1 1 tablet PO DAILY 03/01/20 02/25/25 History mg-0.5 mg tablet (Mimvey) hydrochlorothiazide 25 mg tablet 25 mg PO DAILY #90 tabs 03/02/24 02/25/25 Rx atorvastatin 10 mg tablet See Rx Instructions .Route 08/30/24 02/25/25 Rx .COMPLEX #90 tabs losartan 100 mg tablet See Rx Instructions .Route 08/30/24 02/25/25 Rx .COMPLEX #90 tabs trazodone 50 mg tablet 50 mg PO QHS PRN anxiety 10/19/24 02/07/25 History potassium citrate 10 mEq (1,080 See Rx Instructions .Route 12/24/24 02/25/25 Rx mg) tablet,extended release .COMPLEX #200 tabs tirzepatide (weight loss) 2.5 2.5 mg subcut WEEKLY 02/02/25 02/25/25 History mg/0.5 mL subcutaneous solution Allergies Allergy/AdvReac Type Severity Reaction Status Date / Time No Known Allergies Allergy Verified 02/25/25 08:18 Vital Signs Vital Signs - 24 hr 02/25/25 08:22 Temperature 97.3 F L Pulse Rate 66 Respiratory Rate 18 Blood Pressure 128/80 Pulse Oximetry 95 Oxygen Delivery Room Air Exam Const: General: cooperative and healthy appearing Resp: Effort & Inspection: normal respiratory effort and able to speak in complete sentences Auscultation: clear to auscultation bilaterally Cardio: Rate: regular rate Rhythm: regular rhythm GI: Inspection: normal to inspection GI Palp: No No hepatosplenomegaly present Auscultation: normal bowel sounds Rectal Exam: deferred Skin: General skin exam: normal color Psych: Appearance: grossly normal Mental Status: mental status grossly normal Assessment and Plan Assessment and plan (1) Screening for colon cancer: Code(s): Z12.11 - Encounter for screening for malignant neoplasm of colon Status: Acute Assessment and Plan: The patient is deemed a good candidate for the procedure. Consent signed. Will proceed.
[2025-02-25 09:30] VITALS: BP 105/54; PULSE 67; RESP 21; O2SAT 99
[2025-02-25 09:40] VITALS: BP 100/69; PULSE 65; RESP 23; O2SAT 100
[2025-02-25 09:50] VITALS: BP 121/77; PULSE 66; RESP 17; O2SAT 100
== END 2025-02-25 10:10 | disposition home or self-care (01) ==
PROVIDERS: PCP Family Medicine; Visit Provider Internal Medicine Gastroenterology
PROC: 0DJD8ZZ Inspection of Lower Intestinal Tract, Via Natural or Artificial Opening Endoscopic (ICD-10-PCS; CPT 45378; principal; 2025-02-25 09:30)
DX: Z12.11 Encounter for screening for malignant neoplasm of colon (principal); K57.30 Diverticulosis of large intestine without perforation or abscess without bleeding; E78.5 Hyperlipidemia, unspecified; I10 Essential (primary) hypertension; F41.9 Anxiety disorder, unspecified; E66.9 Obesity, unspecified; Z68.31 Body mass index [BMI] 31.0-31.9, adult; Z79.85 Long-term (current) use of injectable non-insulin antidiabetic drugs
CPT/HCPCS: 45378; J2003; J2704; J7120

== ENCOUNTER 2025-03-29 12:50 | Outpatient (CLI) | payer OTHER, SELFPAY ==
--- NOTE | ~2025-03-29 | DEXA_ITS ---
Bone Density Report Name: FIORELLA JIMENEZ Age: 60 Sex: Female Ethnicity: White Date of : 1965 Indication: postmenopausal; screening for osteoporosis; Referring Provider: ALLA, ONESIMO Study: Bone densitometry was performed. Exam Date: March 29, 2025 Accession number: [id number] Bone Density: Region BMD T-score Z-score Classification AP Spine(L1, L2, L3) 1.138 1.1 2.5 Normal Femoral Neck (Left) 0.856 0.1 1.3 Normal Total Hip (Left) 1.013 0.6 1.5 Normal Femoral Neck (Right) 0.867 0.2 1.4 Normal Total Hip (Right) 1.031 0.7 1.7 Normal Total Hip Mean 1.022 0.7 1.6 Normal World Health Organization criteria for BMD impression classify patients as: Normal (T-score at or above -1.0), Osteopenia (T-score between -1.0 and -2.5), or Osteoporosis (T-score at or below -2.5). 10-year Fracture Risk: FRAX not reported because: All T-scores for Spine Total, Hip Total, Femoral Neck at or above -1.0 Clinical Information Provided by Patient: Has used the following medications: Vitamin D Patient maximum height was 62 No regular weight bearing exercise Drinks caffeinated beverages Onset of menses at age 13 Number of children 2 Impression: The patient has normal bone mass. Discussion: BONE DENSITY IS ABOVE THE MINIMUM DESIRABLE LEVEL AT ALL SKELETAL SITES TESTED. This patient?s bone mineral density is above the minimum desirable level (T-score -1.0 or better) at all sites measured. The patient should follow a healthful lifestyle (good nutrition with adequate calcium and vitamin D, and appropriate weight-bearing exercise). Follow-Up: Consider repeating this study in 5 years or sooner if there is some new clinical indication. Reported by: JURGEN on 03/29/2025 1:37:00 PM. Reviewed, dictated and finalized at location A.
--- OUTSIDE RECORDS SUMMARY | 2025-03-29 13:03 | XMS_ITS | Clinical Summary ---
Author Organization [facility] Address [address] [place] [address] Phone Care Team Providers Care Single Resource Boss Name Role Phone Gwen Cruz MD Primary Care Provider [phone] Allergies No known active allergies Medications atorvastatin (LIPITOR) 10 MG tablet 03/06/2020 Active ergocalciferol (VITAMIN D2) 1.25 MG (87563 UT) capsule 03/04/2020 Active estradiol-noreth indrone (ACTIVELLA) [...] Department Care Team Description 01/10/2025 Orders Only [facility] Nephrology and Hypertension [address], [address] [place] [address] Cali Alvarez MD from Last 3 Months [...] 2:35 AM CDT Performed at: - [facility] [place] [id number] Jewelry Bench Worker: Dylan Salmon PhD, Phone: [phone] us Cali Alvarez MD LAB URINE ORDERABLES Edited Res ult - Final [facility] from Last 3 Months Insurance [facility] Care Teams Single Resource Boss Relationship Specialty Start Date End Date Gwen Cruz MD PCP - General Family Medicine 03/20/20
== END 2025-03-29 12:51 | disposition home or self-care (01) ==
PROVIDERS: PCP Family Medicine; Visit Provider Nurse Practitioner
DX: Z13.820 Encounter for screening for osteoporosis (principal); Z78.0 Asymptomatic menopausal state
CPT/HCPCS: 77080

== ENCOUNTER 2025-06-06 12:10 | Outpatient (CLI) | payer OTHER, SELFPAY ==
--- NOTE | ~2025-06-06 | MM_ITS ---
EXAMINATION: MM screening [facility] w carolann HISTORY: Screening TECHNIQUE: Craniocaudal and mediolateral oblique 3-D tomosynthesis images were obtained and synthetic 2-D images were generated. CAD analysis was submitted and interpreted. COMPARISON: Comparison to multiple prior studies sequentially, with oldest reviewed study dated , 08/09/2020 BREAST PARENCHYMAL COMPOSITION: There are scattered areas of fibroglandular density. FINDINGS: There is no evidence of suspicious mass, calcification, or architectural distortion to suggest malignancy in either breast. IMPRESSION: 1. No mammographic evidence of malignancy. 2. Recommend routine screening mammography in one year. BI-RADS Category 1: Negative Reviewed, dictated and finalized at location C.
== END 2025-06-06 12:11 | disposition home or self-care (01) ==
LOC: MICIMG 12:12
PROVIDERS: PCP Family Medicine; Visit Provider Nurse Practitioner
DX: Z12.31 Encounter for screening mammogram for malignant neoplasm of breast (principal)
CPT/HCPCS: 77063; 77067